=== PATIENT | male | born 2000 | race Caucasian/White ===

== ENCOUNTER 2025-05-19 01:27 | Emergency (ER) | payer SELFPAY ==
--- NOTE | 2025-05-19 01:29 | XRR_ITS ---
PROCEDURE INFORMATION: Exam: XR Chest Exam date and time: 05/19/2025 1:46 AM Age: 25 years old Clinical indication: Cough TECHNIQUE: Imaging protocol: Radiologic exam of the chest. Views: 1 view. COMPARISON: No relevant prior studies available. FINDINGS: Lungs: Unremarkable. No consolidation. Pleural spaces: Unremarkable. No pleural effusion. No pneumothorax. Heart/Mediastinum: Unremarkable. No cardiomegaly. Bones/joints: Unremarkable. XR/XR chest 1V portable [id number] IMPRESSION: No acute findings.
[2025-05-19 01:43] VITALS: BP 123/71; PULSE 88; RESP 14; TEMP 37.1; O2SAT 98
--- NOTE | 2025-05-19 01:51 | CTR_ITS ---
PROCEDURE INFORMATION: Exam: CT Head Without Contrast Exam date and time: 05/19/2025 2:15 AM Age: 25 years old Clinical indication: Pain; Headache; Additional info: ZACARIAS TECHNIQUE: Imaging protocol: Computed tomography of the head without contrast. Radiation optimization: All CT scans at this facility use at least one of these dose optimization techniques: automated exposure control; mA and/or kV adjustment per patient size (includes targeted exams where dose is matched to clinical indication); or iterative reconstruction. COMPARISON: No relevant prior studies available. RADIATION DOSE METRICS: Total DLP (mGy-cm): 1077.38 FINDINGS: Brain: Normal. No hemorrhage. Unremarkable white matter. No mass effect. Cerebral ventricles: No ventriculomegaly. Paranasal sinuses: Visualized sinuses are unremarkable. No fluid levels. Mastoid air cells: Visualized mastoid air cells are well aerated. Bones: Unremarkable. No acute fracture. Soft tissues: Unremarkable. CT/CT head wo con* [id number] IMPRESSION: No acute intracranial abnormality.
--- NOTE | 2025-05-19 01:52 | ED_ITS ---
HPI - Headache 2 General: Chief Complaint: Headache Stated Complaint: Headache\Cough Time Seen by Provider: 05/19/25 01:29 Source: patient Mode of arrival: ambulatory Limitations: no limitations History of Present Illness: 25-year-old male states has been having headache that began 2 days ago he states it began gradually and is worse and is currently 9 out of 10. States its at the base of his skull and seems to radiate to the front. He has had subjective fevers at home he is afebrile here states he had a slight cough as well denies any photophobia or phonophobia denies any vomiting or diarrhea. Associated symptoms: Deny chest pain or vomiting Related Data Allergies Allergy/AdvReac Type Severity Reaction Status Date / Time No Known Allergies Allergy Verified 05/19/25 01:46 Review of Systems 2 Const: Reports: chills ENMT: Denies: throat pain Card: Denies: chest pain Resp: Reports: non-productive cough GI: Denies: vomiting Neuro: Reports: headache(s) Physical Exam 2 Const: COMMON NORMALS: no acute distress, patient oriented x3 and healthy appearing HENMT: COMMON NORMALS: normocephalic and atraumatic HEAD & SCALP: n ormocephalic and atraumatic THROAT: posterior oropharynx normal Eye: COMMON NORMALS: Equal, round and reactive pupils present and EOMs intact bilaterally PUPIL: Yes Equal, round and reactive pupils present Neck/C-Spine: COMMON NORMALS: full ROM, supple and no meningeal signs C ERVICAL SPINE: No Cervical spine tenderness Chest: COMMONS NORMALS: normal inspection of the chest and normal palpation of entire chest wall Resp: COMMON NORMALS: normal respiratory effort, No retractions, No use of accessory muscles and clear to auscultation bilaterally AUSCULTATION: clear to auscultation bilaterally Cardio: COMMON NORMALS: regular rate, regular rhythm and No murmurs present (Cardio) RATE: regular rate RHYTHM: regular rhythm Extremity: COMMON NORMALS: normal to inspection and full ROM Neuro: COMMON NORMALS: patient oriented x3, moves all extremities and no focal motor deficits MENINGEAL SIGNS: Yes no meningeal signs, No nuccal rigidity, No Brudzinski's sign present and No Kernig's sign presnet Psych: COMMON NORMALS: mental status grossly normal, Normal thought process present and cooperative THOUGHT PROCESS: Normal thought process present Skin: COMMON NORMALS: no rashes or lesions noted and no wounds GENERAL SKIN EXAM: no rashes or lesions noted Course 2 Vital Signs: Vital signs: Vital Signs Temperature 98.8 F 05/19/25 01:43 Pulse Rate 88 05/19/25 01:43 Respiratory Rate 14 05/19/25 01:43 Blood Pressure 123/71 05/19/25 01:43 Pulse Oximetry 98 05/19/25 01:43 Oxygen Delivery Me thod Room Air 05/19/25 01:43 MDM - Headache Medical Decision Making Patient presents for that headache is likely a tension headache he has no meningismus no signs of meningitis. His head CT here is normal he has no signs of subarachnoid hemorrhage. His white count here is normal he did test positive for COVID that is likely causing his symptoms including his headache I did review all of this with him patient understands agrees to plan he is to hydrate take Motrin Tylenol return if worsening. Differential Diagnosis Likely migraine, tension headache, subarachnoid hemorrhage, meningitis and sinusitis Medical Records I reviewed the patient's medical records. Lab Data I reviewed the patient's lab results. 05/19/25 01:57 Radiology Impressions Chest X-Ray 05/19/25 01:29 IMPRESSION: No acute findings. Head CT 05/19/25 01:51 IMPRESSION: No acute intracranial abnormality. Laboratory Results WBC 9.85 10^3/uL (3.29-11.43) 05/19/25 01:57 RBC 5.52 10^6/uL (3.85-5.65) 05/19/25 01:57 Hgb 16.20 g/dL (11.27-16.99) 05/19/25 01:57 Hct 46.1 % (37-53) 05/19/25 01:57 MCV 83.5 fl (82-101) 05/19/25 01:57 MCH 29.3 pg (27-33) 05/19/25 01:57 MCHC 35.1 g/dL (30-55) 05/19/25 01:57 RDW 11.9 % (12.1-15.1) L 05/19/25 01:57 Plt Count 189 10^3/cmm (157-399) 05/19/25 01:57 MPV 11.3 fL (7.4-10.4) H 05/19/25 01:57 Neut % (Auto) 67.3 % 05/19/25 01:57 Lymph % (Auto) 17.6 % 05/19/25 01:57 [place] % (Auto) 13.2 % 05/19/25 01:57 Eos % (Auto) 0.5 % 05/19/25 01:57 Baso % (Auto) 0.5 % 05/19/25 01:57 Neut # (Auto) 6.63 10^3/uL (1.8-7.7) 05/19/25 01:57 Lymph # (Auto) 1.7 10^3/uL (0.8-4.8) 05/19/25 01:57 [place] # (Auto) 1.3 10^3/uL (0.2-0.9) H 05/19/25 01:57 Eos # (Auto) 0.1 10^3/uL (0.0-0.8) 05/19/25 01:57 Baso # (Auto) 0.1 10^3/uL (0.0-0.1) 05/19/25 01:57 Nucleated RBC % (auto) 0 % 05/19/25 01:57 Nucleated RBCs # 0.0 /100WBC 05/19/25 01:57 Influenza A (PCR) Negative (Negative) 05/19/25 01:54 Influenza Type B (PCR) Negative (Negative) 05/19/25 01:54 RSV (PCR) Negative (Negative) 05/19/25 01:54 All radiology interpretation(s) finalized by discharge Discharge Plan Discharge Patient Disposition: Home Clinical Impression: Headache, COVID-19 Condition: Stable Discharge Orders: Discharge ED (Routine); Ordered 05/19/25 Ordered By: Felipa Holley Discharge Diet: Advance as tolerated Discharge Activity: Resume usual activity Patient Instructions: COVID-19 (Coronavirus Disease 2019) (ED) Print Language: Amharic Coding Level of Care Code ED Guide Dog Mobility Instructor for Kenneth Ceja
[2025-05-19] MEDS: metoclopramide 5 mg/mL SDV 2 mL IVP (02:02)
[2025-05-19] MEDS: diphenhydrAMINE 50 mg/mL SDV 1mL IVP (02:02)
[2025-05-19 02:07] LABS: Hematocrit 46.1 % (37-53); Hemoglobin 16.20 g/dL (11.27-16.99); Mean Corpuscular HGB Conc 35.1 g/dL (30-55); Mean Corpuscular Hemoglobin 29.3 pg (27-33); Mean Corpuscular Volume 83.5 fl (82-101); Nucleated Red Blood Cells % 0 %; Platelet Count 189 10^3/cmm (157-399); Red Blood Count 5.52 10^6/uL (3.85-5.65); White Blood Count 9.85 10^3/uL (3.29-11.43)
[2025-05-19 02:46] LABS: Respiratory Syncytial Virus Ce NEGATIVE (Negative)
[2025-05-19 02:55] LABS: SARS-CoV-2 PCR Positive (Negative)
[2025-05-19 03:12] VITALS: BP 117/70; PULSE 70; RESP 16; O2SAT 99
== END 2025-05-19 03:11 | disposition home or self-care (01) ==
PROVIDERS: Emergency Provider Emergency Medicine
DX: R51.9 Headache, unspecified (principal); U07.1 COVID-19; Z11.52 Encounter for screening for COVID-19
CPT/HCPCS: 70450; 71045; 85025; 87637; 96374; 96375; 99285; J1200; J1885; J2765; J7030